=== PATIENT | female | born 1945 | race American Indian/Alaskan Native ===

== ENCOUNTER 2016-04-20 14:20 | Inpatient (IN) | payer MEDICARE ==
--- NOTE | 2016-04-20 14:59 | C.PDOC ---
History Of Present Illness 71-year-old female, PMHx includes Hypertension and CVA, referred by PMD because she failed outpatient treatment for walking pneumonia. As per patient, she has been treated w/ a variety of antibx courses for pneumonia since 01/28. Patient comes in today w/ complaints a non-productive cough, worsening shortness of breath w/ exertion and intermittent swelling in B/L ankles, that is associated w / orthopnea, for the past several weeks. Patient denies nausea/vomiting, diarrhea, fevers, chills, back pain, dizziness, symptoms, change in bowel habits, or any other associated symptoms. No other complaints at this time. DENIES HO SMOKING PMD Dr Monsalve Time Seen by Provider: 04/20/16 14:39 Chief Complaint (Nursing): Cough, Cold, Congestion History Per: Patient History/Exam Limitations: no limitations Past Medical History Reviewed: Historical Data, Nursing Documentation, Vital Signs Vital Signs: Last Vital Signs Temp 99.0 F 04/21/16 23:05 Pulse 65 04/22/16 01:40 Resp 20 04/21/16 23:05 BP 116/77 04/21/16 23:05 Pulse Ox 95 04/21/16 23:05 - Medical History PMH: HTN Family History: States: Unknown Family Hx - Social History Hx Alcohol Use: No Hx Substance Use: No - Immunization History Hx Tetanus Toxoid Vaccination: No Hx Influenza Vaccination: No Hx Pneumococcal Vaccination: No Review Of Systems Except As Marked, All Systems Reviewed And Found Negative. Constitutional: Negative for: Fever, Chills Cardiovascular: Positive for: Orthopnea, Edema. Negative for: Chest Pain, Light Headedness Respiratory: Positive for: Cough, Shortness of Breath. Negative for: Sputum Gastrointestinal: Negative for: Nausea, Vomiting Musculoskeletal: Negative for: Back Pain Skin: Negative for: Rash Physical Exam - Physical Exam Appears: Non-toxic, No Acute Distress Skin: Warm, Dry, No Rash Head: Atraumatic, Normacephalic Eye(s): bilateral: Normal Inspection Nose: Normal Oral Mucosa: Moist Lips: Normal Appearing Neck: Normal ROM, Supple Chest: Symmetrical Cardiovascular: Rhythm Regular Respiratory: Normal Breath Sounds, No Accessory Muscle Use Extremity: Normal ROM, No Pedal Edema Neurological/Psych: Oriented x3, Normal Speech ED Course And Treatment - Laboratory Results Result Diagrams: 04/20/16 15:03 04/21/16 07:08 ECG: Interpreted By Me ECG Rhythm: Sinus Rhythm (TWI III) ECG Interpretation: Abnormal Rate From EC O2 Sat by Pulse Oximetry: 99 Progress - Re-Evaluation Re-evaluation Note: 04/20/16 17:22 CTA NEG CO NEW ONSET L CP X 30 MINUTES. APPEARS COMFORTABLE, NAD VSS. WILL REPEAT EKG. BNP PENDING 04/20/16 17:36 d/w dr munoz c/f pmd AWARE OF ER FINDINGS WILL ADMIT. CONSULT DR CORDOVA - Data Reviewed Data Reviewed: Lab, Diagnostic imaging, EKG, Old records - Continuity of Care Discussed patient case with:: Patient, Covering for PMD Disposition Counseled Patient/Family Regarding: Studies Performed, Diagnosis - Disposition Disposition: HOSPITALIZED Disposition Time: 17:36 Condition: STABLE - POA Present On Arrival: None - Clinical Impression Clinical Impression: Chest pain, Dyspnea on exertion - Scribe Statement The provider has reviewed the documentation as recorded by the Scribe Kady Townsend All medical record entries made by the Scribe were at my direction and personally dictated by me. I have reviewed the chart and agree that the record accurately reflects my personal performance of the history, physical exam, medical decision making, and the department course for this patient. I have also personally directed, reviewed, and agree with the discharge instructions and disposition. Decision To Admit - Pt Status Changed To: Hospital Disposition Of: Inpatient - Admit Certification Admit to Inpatient:: After my assessment, the patient will require hospitalization for at least two midnights. This is because of the severity of symptoms shown, intensity of services needed, and/or the medical risk in this patient being treated as an outpatient. - InPatient: Physician Admission Certification: I certify that this patient requires 2 or more midnights of care for the following reason:: SEE NOTE - . Bed Request Type: Telemetry Admitting Physician: Naun Munoz Patient Diagnosis: Chest pain, Dyspnea on exertion
[2016-04-20 15:14] LABS: BASO % 0.9 % (0.0-2.0); EOS % 0.8 % (0.0-4.0); HEMATOCRIT 31.3 % (34.0-47.0); LYMPH # 1.4 K/uL (1.0-4.3); LYMPH % 35.2 % (20.0-40.0); MEAN CELL VOLUME 82.9 fL (81.0-99.0); MEAN CORPUSCULAR HEMOGLOBIN 27.9 pg (27.0-31.0); MEAN CORPUSCULAR HGB CONC 33.6 g/dL (33.0-37.0); MEAN PLATELET VOLUME 8.1 fL (7.2-11.7); MONO # 0.3 K/uL (0.0-0.8); MONO % 8.8 % (0.0-10.0); NRBC % 0.2 % (0.0-2.0); RED CELL DISTRIBUTION WIDTH 14.8 % (11.5-14.5); WHITE BLOOD COUNT 3.9 K/uL (4.8-10.8)
[2016-04-20 15:22] LABS: CHLORIDE 104 mmol/L (98-107); POTASSIUM 3.9 mmol/L (3.6-5.2); SODIUM 143 mmol/L (132-148)
[2016-04-20 15:24] LABS: BILIRUBIN,TOTAL 0.4 mg/dL (0.2-1.3); CARBON DIOXIDE 22 mmol/L (22-30); GFR AFRICAN-AMERICAN 59
[2016-04-20 15:25] LABS: ALKALINE PHOSPHATASE 127 U/L (38-126); ALT/SGPT 60 U/L (9-52); AST/SGOT 85 U/L (14-36); BLOOD UREA NITROGEN 15 mg/dL (7-17); CALCIUM 8.9 mg/dl (8.6-10.4); GLUCOSE,RANDOM 100 mg/dL (65-105)
--- NOTE | 2016-04-20 15:44 | RAD ---
HISTORY: SOB COMPARISON: None available. TECHNIQUE: Chest PA and lateral FINDINGS: Examination limited by habitus and hypoinflation. LUNGS: Bibasilar atelectasis or infiltrates. Please note that chest x-ray has limited sensitivity for the detection of pulmonary masses. PLEURA: No significant pleural effusion identified. No definite pneumothorax . CARDIOVASCULAR: Enlargement of the cardiomediastinal silhouette. Ectatic aorta. OSSEOUS STRUCTURES: Degenerative changes of the spine and shoulders. VISUALIZED UPPER ABDOMEN: Unremarkable. OTHER FINDINGS: None. IMPRESSION: Enlargement of the cardiomediastinal silhouette. Probable ectatic aorta. CT of the chest with IV contrast may be considered for further evaluation if indicated. Bibasilar atelectasis or infiltrates.
[2016-04-20 15:46] LABS: INR 1.2
[2016-04-20 15:46] LABS: TOTAL PROTEIN 10.9 g/dL (6.3-8.3)
[2016-04-20 15:48] LABS: ALB/GLOB RATIO 0.5 (1.0-2.1)
[2016-04-20] MEDS ORDERED: Iodixanol 320 MG/ML 100 ML BOTTLE IV ONE (16:00)
--- NOTE | 2016-04-20 16:58 | CT ---
CT chest with IV contrast Indication: Coughing, fever, congestion, chest pain Technique: Contiguous axial images were obtained through the chest with intravenous contrast enhancement. Sagittal and coronal reconstructions were generated and reviewed. IV Contrast: 100 cc Visipaque 320 Radiation dose (DLP): 434.56 MGy-cm. Comparison: Chest x-ray performed the same day. Findings: Visualized portions of the inferior thyroid gland appear unremarkable. The mediastinal and hilar vascular structures appear within normal limits. Cardiomegaly. No significant pericardial effusion. Tortuous aorta. No central or segmental pulmonary embolus identified. Bibasilar dependent atelectasis or infiltrates. No pleural effusion. No pneumothorax. No suspicious pulmonary nodules measuring greater than 5 mm. Small hiatal hernia. Limited visualization of the upper abdomen appears grossly unremarkable. Kyphosis. Multilevel degenerative changes. Impression: Cardiomegaly. Tortuous aorta. Bibasilar dependent atelectasis or infiltrates. Small hiatal hernia.
[2016-04-20] MEDS ORDERED: Moxifloxacin IV 400mg/250ml NS 250 ML IV ONE (17:32)
[2016-04-20] MEDS ORDERED: Moxifloxacin IV 400mg/250ml NS 250 ML IVPB ONE (17:59)
[2016-04-20] MEDS: Albuterol-Ipratrop 3 mg / 0.5 (3 ml) UD INH SCH (22:02)
[2016-04-21 03:37] LABS: RBC URINE 1 /hpf (0-3); URINE BACTERIA RARE (<OCC); URINE BILIRUBIN NEGATIVE (NEGATIVE); URINE BLOOD NEGATIVE (NEGATIVE); URINE COLOR Yellow (YELLOW); URINE GLUCOSE (UA) NORMAL (Normal); URINE KETONE NEGATIVE (NEGATIVE); URINE LEUKOCYTE ESTERASE NEG Leu/uL (Negative); URINE PROTEIN NEGATIVE (NEGATIVE); URINE UROBILINOGEN NORMAL mg/dL (0.2-1.0); WBC URINE 1 /hpf (0-5)
[2016-04-21] MEDS: Albuterol-Ipratrop 3 mg / 0.5 (3 ml) UD INH SCH ×4 (07:41→19:25)
--- NOTE | 2016-04-21 08:20 | CP.PCM.HP ---
History of Present Illness - History of Present Illness History of Present Illness: 71 y/o female with HTN. Patient has cough x 3 mths. she was given antibiotic and seen [facility]?. Pt eventually sen in ER c/o chest pain, olaf fatigue (will go to bath room and gets very SOB). Pt eventually admitted. Present on Admission - Present on Admission Any Indicators Present on Admission: Yes History of DVT/PE: No History of Uncontrolled Diabetes: No Urinary Catheter: No Decubitus Ulcer Present: No Review of Systems - Review of Systems Systems not reviewed;Unavailable: Acuity of Condition - Constitutional Constitutional: Fever, Lethargy, Malaise. absent: Anorexia, Headache, Night Sweats - EENT Eyes: absent: Change in Vision, Loss of Peripheral Vision, Spots in Vision, Loss of Vision Ears: Dizziness. absent: Ear Pain, Disequilibrium Nose/Mouth/Throat: absent: Nasal Discharge, Post Nasal Drip, Bleeding Gums, Dry Mouth, Hoarsness, Odynophagia, Sore Throat, Neck Mass - Cardiovascular Cardiovascular: Chest Pain, Dyspnea. absent: Chest Pain at Rest, Diaphoresis, Edema, Irregular Heart Rhythm, Leg Edema - Respiratory Respiratory: Cough, Dyspnea on Exertion. absent: Hemoptysis, Chest Congestion, Excessive Mucous Production - Gastrointestinal Gastrointestinal: Bloating. absent: Diarrhea, Hematochezia, Melena, Nausea, Vomiting - Genitourinary Genitourinary: Urinary Hesitance. absent: Difficulty Urinating, Dysuria, Flank Pain, Hematuria - Musculoskeletal Musculoskeletal: Abnormal Gait. absent: Back Pain, Loss of Height, Neck Pain - Integumentary Integumentary: absent: Rash, Skin Ulcer, Swelling - Neurological Neurological: absent: Abnormal Gait, Abnormal Movements, Dizziness, Numbness, Headaches Past Patient History - Infectious Disease Hx of Infectious Diseases: None - Past Medical History & Family History Past Medical History?: Yes - Past Social History Smoking Status: Never Smoked - CARDIAC Hx Hypertension: Yes - PULMONARY Hx Asthma: Yes - NEUROLOGICAL HX Cerebrovascular Accident: Yes - HEENT Hx HEENT Problems: Yes Hx Cataracts: Yes - RENAL Hx Chronic Kidney Disease: No - ENDOCRINE/METABOLIC Hx Endocrine Disorders: No - HEMATOLOGICAL/ONCOLOGICAL Hx Blood Disorders: No - INTEGUMENTARY Hx Dermatological Problems: No - MUSCULOSKELETAL/RHEUMATOLOGICAL Hx Musculoskeletal Disorders: No Hx Falls: No - GASTROINTESTINAL Hx Gastrointestinal Disorders: No - GENITOURINARY/GYNECOLOGICAL Hx Genitourinary Disorders: No - PSYCHIATRIC Hx Psychophysiologic Disorder: No Hx Substance Use: No - SURGICAL HISTORY Hx Surgeries: Yes Other/Comment: "several" - ANESTHESIA Hx Anesthesia: Yes Hx Anesthesia Reactions: No Hx Malignant Hyperthermia: No Meds Allergies/Adverse Reactions: Allergies Allergy/AdvReac Type Severity Reaction Status Date / Time No Known Allergies Allergy Verified 04/20/16 14:30 Physical Exam - Constitutional Appears: No Acute Distress - Eye Exam Eye Exam: Normal appearance - ENT Exam ENT Exam: Mucous Membranes Moist - Neck Exam Neck exam: Positive for: Lymphadenopathy. Negative for: Full Rom, Tenderness, Thyromegaly - Respiratory Exam Respiratory Exam: Clear to Auscultation Bilateral. absent: Rales, Rhonchi, Wheezes - Cardiovascular Exam Cardiovascular Exam: REGULAR RHYTHM, +S1, +S2. absent: Gallop, JVD, Systolic Murmur - GI/Abdominal Exam GI & Abdominal Exam: Soft. absent: Mass, Tenderness - Extremities Exam Extremities exam: Positive for: full ROM, normal capillary refill. Negative for : calf tenderness, joint swelling, pedal pulses present Results - Vital Signs Recent Vital Signs: Last Vital Signs Temp 98.9 F 04/21/16 07:59 Pulse 61 04/21/16 07:59 Resp 20 04/21/16 07:59 BP 137/80 04/21/16 07:59 Pulse Ox 20 L 04/21/16 07:58 - Labs Result Diagrams: 04/20/16 15:03 04/20/16 15:03 Labs: Laboratory Results - last 24 hr 04/21/16 03:26 Urine Color Yellow Urine Clarity Clear Urine pH 6.0 Ur Specific [place] 1.026 Urine Protein Negative Urine Glucose (UA) Normal Urine Ketones Negative Urine Blood Negative Urine Nitrate Negative Urine Bilirubin Negative Urine Urobilinogen Normal Ur Leukocyte Esterase Neg Urine WBC (Auto) 1 Urine RBC (Auto) 1 Ur Squamous Epith Cells 3 Urine Bacteria Rare - EKG Data EKG Interpreted by: Myself EKG shows normal: Sinus rhythm Rate: Normal (left axis deviation) Assessment & Plan - Assessment and Plan (Free Text) Assessment: Chest pain w/ olaf fatigue HTN; Chr cough w/ bilateral lung Atelectasis Anemia/ Leucopenia & abn LFT Await Cardio eval Seen c/o Dr Evans - heather work up on going B- saroj/ Plavix and Heparin for now Starte on Duaneb & Incentive marina c/o atelectasis
[2016-04-21 08:52] LABS: CHLORIDE 105 mmol/L (98-107); POTASSIUM 3.9 mmol/L (3.6-5.2); SODIUM 143 mmol/L (132-148)
[2016-04-21 08:54] LABS: AST/SGOT 73 U/L (14-36); BILIRUBIN,TOTAL 0.4 mg/dL (0.2-1.3); CARBON DIOXIDE 25 mmol/L (22-30); GFR AFRICAN-AMERICAN 59
[2016-04-21 08:55] LABS: ALB/GLOB RATIO 0.5 (1.0-2.1); ALKALINE PHOSPHATASE 103 U/L (38-126); ALT/SGPT 57 U/L (9-52); BLOOD UREA NITROGEN 17 mg/dL (7-17); CALCIUM 8.5 mg/dl (8.6-10.4); GLUCOSE,RANDOM 82 mg/dL (65-105)
[2016-04-21 09:22] LABS: THYROID STIMULATING HORMONE 1.75 mIU/L (0.46-4.68)
--- NOTE | 2016-04-21 10:16 | US ---
HISTORY: r/o cirrhosis hypersplenism COMPARISON: None available TECHNIQUE: Sonographic evaluation of the abdomen. FINDINGS: LIVER: Measures 16.9 cm in sagittal dimension. Minimal nodular hepatic contour. Echogenic liver may be seen in setting of hepatic parenchymal disease or fatty infiltration. No focal hepatic mass identified. The main portal vein appears patent with normal directional flow. No intrahepatic bile duct dilatation. GALLBLADDER: Gallstones. No gallbladder wall thickening. Negative sonographic Pelletier's sign as assessed by the medical psychotherapist. COMMON BILE DUCT: Measures 4 mm. PANCREAS: Not well visualized. RIGHT KIDNEY: Measures 9.5 x 2.7 x 3.4cm. No obstructing calculus or hydronephrosis identified. LEFT KIDNEY: Measures 9.6 x 4.4 x 4.9cm. No obstructing calculus or hydronephrosis identified. SPLEEN: Measures approximately 10.2 cm. AORTA: Limited views appear unremarkable. IVC: Limited views appear unremarkable. OTHER FINDINGS: None. IMPRESSION: Echogenic liver may be seen in setting of hepatic parenchymal disease or fatty infiltration. Minimal nodularity of the hepatic contour. Cholelithiasis.
--- NOTE | 2016-04-21 12:19 | CP.PCM.CON ---
History of Present Illness - History of Present Illness History of Present Illness: I was sked to see patient by Dr. Ramirez. Patient is a 71 year old female with a history of HTN who presents with dyspnea. Patient was being treated for pneumonia as an outpatient, and developed progressive dyspnea with exertion. He symptoms jayne nto improve with antibiotic therapy. She was admitted for further management. Of note the patient has elevated liver enzymes. Review of Systems - Constitutional Constitutional: absent: As Per HPI, Anorexia, Chills, Daytime Sleepiness, Excessive Sweating, Fatigue, Fever, Frequent Falls, Headache, Increased Appetite , Lethargy, Malaise, Night Sweats, Snoring, Sleep Apnea, Weight Gain, Weight Loss, Weakness, Other - EENT Eyes: absent: As Per HPI, Blind Spots, Blurred Vision, Change in Vision, Decreased Night Vision, Diplopia, Discharge, Dry Eye, Exophthalmos, Floaters, Irritation, Itchy Eyes, Loss of Peripheral Vision, Pain, Photophobia, Requires Corrective Lenses, Sees Flashes, Spots in Vision, Tunnel Vision, Other Visual Disturbances, Loss of Vision, Other Ears: absent: As Per HPI, Decreased Hearing, Ear Discharge, Ear Pain, Tinnitus, Abnormal Hearing, Disequilibrium, Dizziness, Other Nose/Mouth/Throat: absent: As Per HPI, Epistaxis, Nasal Congestion, Nasal Discharge, Nasal Obstruction, Nasal Trauma, Nose Pain, Post Nasal Drip, Sinus Pain, Sinus Pressure, Bleeding Gums, Change in Voice, Dental Pain, Dry Mouth, Dysphagia, Halitosis, Hoarsness, Lip Swelling, Mouth Lesions, Mouth Pain, Odynophagia, Sore Throat, Throat Swelling, Tongue Swelling, Facial Pain, Neck Pain, Neck Mass, Other - Cardiovascular Cardiovascular: absent: As Per HPI, Acrocyanosis, Chest Pain, Chest Pain at Rest , Chest Pain with Activity, Claudication, Diaphoresis, Dyspnea, Dyspnea on Exertion, Edema, Irregular Heart Rhythm, Pain Radiating to Arm/Neck/Jaw, Leg Edema, Leg Ulcers, Lightheadedness, Orthopnea, Palpitations, Paroxysmal Nocturnal Dyspnea, Pedal Edema, Radiating Pain, Rapid Heart Rate, Slow Heart Rate, Syncope, Other - Respiratory Respiratory: Dyspnea - Gastrointestinal Gastrointestinal: absent: As Per HPI, Abdominal Pain, Belching, Bloating, Change in Bowel Habits, Change in Stool Character, Coffee Ground Emesis, Constipation, Cramping, Diarrhea, Dyspepsia, Dysphagia, Early Satiety, Excessive Flatus, Fecal Incontinence, Heartburn, Hematemesis, Hematochezia, Loose Stools, Melena, Nausea, Odynophagia, Temesmus, Vomiting, Other - Genitourinary Genitourinary: absent: As Per HPI, Change in Urinary Stream, Difficulty Urinating, Dysuria, Flank Pain, Hematuria, Pyuria, Nocturia, Urinary Incontinence, Urinary Frequency, Urinary Hesitance, Urinary Urgency, Voiding Freq/Small Amts, Freq UTI, Hx Renal/Bladder Calculi, Hx /Renal Surgery, Bladder Distension, Other - Musculoskeletal Musculoskeletal: absent: As Per HPI, Abnormal Gait, Arthralgias, Atrophy, Back Pain, Deformity, Joint Swelling, Limited Range of Motion, Loss of Height, Muscle Cramps, Muscle Weakness, Myalgias, Neck Pain, Numbness, Radiating Pain into Limb, Stiffness, Tingling, Other - Integumentary Integumentary: absent: As Per HPI, Acne, Alopecia, Bleeding Lesions, Change in Hair, Change in Nails, Change in Pigmentation, Changing Lesions, Dry Skin, Erythema, Furuncle, Hirsutism, Lesions, New Lesions, Non-Healing Lesions, Photosensitivity, Pruritus, Rash, Skin Pain, Skin Ulcer, Sores, Striae, Swelling , Unusual Bruising, Wounds, Jaundice, Other - Neurological Neurological: absent: As Per HPI, Abnormal Gait, Abnormal Hearing, Abnormal Movements, Abnormal Speech, Behavioral Changes, Burning Sensations, Confusion, Convulsions, Disequilibrium, Dizziness, Numbness, Focal Weakness, Frequent Falls , Headaches, Lack of Coordination, Loss of Vision, Memory Loss, Paresthesias, Radicular Pain, Restless Legs, Sensory Deficit, Syncope, Tingling, Tremor, Vertigo, Weakness, Other Visual Disturbances, Other - Psychiatric Psychiatric: absent: As Per HPI, Abnormal Sleep Pattern, Anhedonia, Anxiety, Auditory Hallucinations, Behavioral Changes, Change in Appetite, Change in Libido, Confusion, Depression, Difficulty Concentrating, Hallucinations, Homicidal Ideation, Hopelessness, Irritability, Memory Loss, Mood Swings, Panic Attacks, Paranoia, Suicidal Ideation, Visual Hallucinations, Tactile Hallucinations, Other - Endocrine Endocrine: absent: As Per HPI, Change in Body Appearance, Change in Libido, Cold Intolorance, Deepening of Voice, Excessive Sweating, Fatigue, Flushing, Heat Intolorance, Increase in Ring/Shoe/Hat Size, Palpitations, Polydipsia, Polyphagia, Polyuria, Other - Hematologic/Lymphatic Hematologic: absent: As Per HPI, Easy Bleeding, Easy Bruising, Lymphadenopathy, Other Past Patient History - Infectious Disease Hx of Infectious Diseases: None - Past Medical History & Family History Past Medical History?: Yes - Past Social History Smoking Status: Never Smoked - CARDIAC Hx Hypertension: Yes - PULMONARY Hx Asthma: Yes - NEUROLOGICAL HX Cerebrovascular Accident: Yes - HEENT Hx HEENT Problems: Yes Hx Cataracts: Yes - RENAL Hx Chronic Kidney Disease: No - ENDOCRINE/METABOLIC Hx Endocrine Disorders: No - HEMATOLOGICAL/ONCOLOGICAL Hx Blood Disorders: No - INTEGUMENTARY Hx Dermatological Problems: No - MUSCULOSKELETAL/RHEUMATOLOGICAL Hx Musculoskeletal Disorders: No Hx Falls: No - GASTROINTESTINAL Hx Gastrointestinal Disorders: No - GENITOURINARY/GYNECOLOGICAL Hx Genitourinary Disorders: No - PSYCHIATRIC Hx Psychophysiologic Disorder: No Hx Substance Use: No - SURGICAL HISTORY Hx Surgeries: Yes Other/Comment: "several" - ANESTHESIA Hx Anesthesia: Yes Hx Anesthesia Reactions: No Hx Malignant Hyperthermia: No Meds Allergies/Adverse Reactions: Allergies Allergy/AdvReac Type Severity Reaction Status Date / Time No Known Allergies Allergy Verified 04/20/16 14:30 - Medications Medications: Current Medications Albuterol/Ipratropium (Duoneb 3 Mg/0.5 Mg (3 Ml) Ud) 3 ml INH RQID [facility] Last Admin: 04/21/16 11:22 Dose: 3 ml Clopidogrel Bisulfate (Plavix) 75 mg PO DAILY [facility] Last Admin: 04/21/16 10:10 Dose: 75 mg Heparin Sodium (Porcine) (Heparin) 5,000 units SC Q12 [facility] Last Admin: 04/21/16 10:10 Dose: 5,000 units Influenza Virus Vaccine (Afluria) 45 mcg IM .ONCE ONE Stop: 04/23/16 10:01 Metoprolol Tartrate (Lopressor) 50 mg PO BID [facility] Last Admin: 04/21/16 10:10 Dose: 50 mg Pneumococcal Polyvalent Vaccine (Pneumovax 23 Vaccine) 0.5 ml IM .ONCE ONE Stop: 04/23/16 10:01 Physical Exam - Constitutional Appears: Non-toxic - Head Exam Head Exam: NORMAL INSPECTION - Eye Exam Eye Exam: Normal appearance - ENT Exam ENT Exam: Mucous Membranes Moist - Neck Exam Neck exam: Positive for: Full Rom - Respiratory Exam Respiratory Exam: NORMAL BREATHING PATTERN - Cardiovascular Exam Cardiovascular Exam: REGULAR RHYTHM - GI/Abdominal Exam GI & Abdominal Exam: Normal Bowel Sounds - Rectal Exam Rectal Exam: Deferred - Extremities Exam Extremities exam: Negative for: pedal edema - Back Exam Back exam: NORMAL INSPECTION - Neurological Exam Neurological exam: Alert, Oriented x3 - Psychiatric Exam Psychiatric exam: Normal Affect - Skin Skin Exam: Normal Color Results - Vital Signs Recent Vital Signs: Last Vital Signs Temp 98.9 F 04/21/16 07:59 Pulse 61 04/21/16 07:59 Resp 20 04/21/16 07:59 BP 137/80 04/21/16 07:59 Pulse Ox 20 L 04/21/16 07:58 - Labs Result Diagrams: 04/20/16 15:03 04/21/16 07:08 Labs: Laboratory Results - last 24 hr 04/21/16 04/21/16 04/21/16 03:26 07:08 11:11 Sodium 143 Potassium 3.9 Chloride 105 Carbon Dioxide 25 Anion Gap 17 BUN 17 Creatinine 1.1 Est GFR ( Amer) 59 Est GFR (Non-Af Amer) 49 Random Glucose 82 Calcium 8.5 L Total Bilirubin 0.4 AST 73 H ALT 57 H Alkaline Phosphatase 103 Lactate Dehydrogenase 418 Troponin I < 0.0120 Total Protein 10.0 H Albumin 3.4 L Globulin 6.6 H Albumin/Globulin Ratio 0.5 L TSH 3rd Generation 1.75 Urine Color Yellow Urine Clarity Clear Urine pH 6.0 Ur Specific [place] 1.026 Urine Protein Negative Urine Glucose (UA) Normal Urine Ketones Negative Urine Blood Negative Urine Nitrate Negative Urine Bilirubin Negative Urine Urobilinogen Normal Ur Leukocyte Esterase Neg Urine WBC (Auto) 1 Urine RBC (Auto) 1 Ur Squamous Epith Cells 3 Urine Bacteria Rare - EKG Data EKG Interpreted by: Myself EKG shows normal: Sinus rhythm Assessment & Plan (1) Chest pain Assessment and Plan: appears non cardiac in origin. recommend serial cardiac troponin.. check echocardiogram to eval for regional wall motion abnormalities. Status: Acute (2) Dyspnea on exertion Assessment and Plan: will check echocardiogram Status: Acute
[2016-04-21 12:27] LABS: IMMUNOGLOBULIN M 36.5 mg/dL (40.0-230.0)
[2016-04-21 12:28] LABS: IMMUNOGLOBULIN A 207.6 mg/dL (70.0-400.0)
[2016-04-21 13:31] LABS: IMMUNOGLOBULIN G > 2700.0 mg/dL (700.0-1600.0)
--- NOTE | 2016-04-21 14:15 | CARD ---
APPROVED REPORT EXAM: Two-dimensional and M-mode echocardiogram with Doppler and color Doppler. Other Information Quality : GoodRhythm : NSR INDICATION CVA/TIA Dyspnea Chest Pain RISK FACTORS Hypertension M-Mode DIMENSIONS RVDd1.53 (2.1-3.2cm)Left Atrium (MM)3.85 (2.5-4.0cm) IVSd0.90 (0.7-1.1cm)Aortic Root3.02 (2.2-3.7cm) LVDd4.55 (4.0-5.6cm)Aortic Cusp Exc.2.01 (1.5-2.0cm) PWd0.94 (0.7-1.1cm)FS (%) 39 % LVDs2.78 (2.0-3.8cm)LVEF (%)69 (>50%) Aortic Valve AoV Peak Txyuylkn533.5cm/Jaswant Peak GR.8mmHgAI P 1/2 [id number] Mitral Valve MV E Keamhtst53.4cm/sMV A Hogrxsuo89.6cm/sE/A ratio1.1 TDI E/Lateral E'0.0E/Medial E'0.0 Tricuspid Valve TR Peak [id number]/sTR Peak Gr.[id number] LEFT VENTRICLE The left ventricle is normal size. There is normal left ventricular wall thickness. The left ventricular function is normal. The left ventricular ejection fraction is within the normal range. There is normal LV segmental wall motion. The left ventricular diastolic function is normal. RIGHT VENTRICLE The right ventricle is normal size. There is normal right ventricular wall thickness. ATRIA The left atrium size is normal. The right atrium size is normal. AORTIC VALVE There is trace to mild aortic regurgitation. MITRAL VALVE Mitral regurgitation is trace. TRICUSPID VALVE There is mild tricuspid regurgitation. <Conclusion> Normal LV systoli cfunction. Normal chamber size. Trace MR. Trace to mild AR. Mild TR.
--- NOTE | 2016-04-21 14:40 | CON ---
DATE: 04/21/2016 This is a 71-year-old woman who gives a relatively poor history. She lives alone in a senior citizen s. Cigarettes negative, alcohol negative. She does not know what medicines she takes but she says she has been on antibiotics several times in the last few months. She says she has not been in the h ospital in several years; however, she says that she was supposed to go for right knee operation at [facility] a year ago and this was canceled because she was having left-sided chest pains and ab normal liver tests. She was told that her heart was causing the liver problem. She does not know an ything more about that. 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 In any event, she is now co samm in for increasing shortness of breath and aches in her left shoulder and left chest wall area. She denies any change in her diet. Has no abdominal pains and no fever. PHYSICAL EXAMINATION: SKIN: No petechiae, no bruises. HEENT: Anicteric. NODES: None palpable in the axillary, cervical, supraclavicular or inguinal regions. BREAST: No mass, discharge, dimpling. HEART: S1, S2, no gallops, rubs, or murmur. LUNGS: Clear at present. No rales, no rhonchi, no rubs, no wheezing. She is able to lie flat in be d. No vertebral tenderness noted. ABDOMEN: Shows no liver, no spleen, no tenderness, no ascites, no rebound. EXTREMITIES: No edema. Homans' negative. CENTRAL NERVOUS SYSTEM: No focal finding. The liver blood tests are significant for pancytopenia. White count 3.9, hemoglobin 10.5, MCV 83, an d platelet count of 132. Her liver function tests are also elevated and she has a total protein of 1 0 with a globulin of 7. At this point, I am ordering tests to see if this is a polyclonal versus monoclonal gammopathy. I am ordering an abdominal ultrasound to evaluate the liver and spleen to see if this is not cirrhosis wi th hypersplenism and then we will take it from there. Tommie Evans MD cc: [phone] TT: 04/21/2016 09:33:24 Confirmation # [id number] Dictation # [id number]
--- NOTE | 2016-04-21 14:46 | CARD ---
APPROVED REPORT EKG Measurement Heart [id number] <Conclusion> Normal sinus rhythm Minimal voltage criteria for LVH, may be normal variant Abnormal ECG
[2016-04-21] MEDS: Moxifloxacin IV 400mg/250ml NS 250 ML IVPB SCH (21:35)
[2016-04-21] MEDS: Latanoprost 2.5 ml Opht Soln OU SCH (23:40)
--- NOTE | 2016-04-22 02:21 | CP.PCM.PN ---
Subjective - Date & Time of Evaluation Date of Evaluation: 04/22/16 Time of Evaluation: 02:18 - Subjective Subjective: House Doctor Note Patient was seen at bedside complaining of BL LE pain. Pain was elicited on palpation behind both knees and bilateral calf tenderness. BL venous dopplers ordered. Patient asked for tylenol for pain. Due to her elevated LFTs, she was given toradol instead. Mariela NERI, PGY-1 Objective - Vital Signs/Intake and Output Vital Signs (last 24 hours): Temp Pulse Resp BP Pulse Ox 99.0 F 65 20 116/77 95 04/21/16 23:05 04/22/16 01:40 04/21/16 23:05 04/21/16 23:05 04/21/16 23:05 Intake and Output: 04/21/16 04/22/16 18:59 06:59 Intake Total 270 570 Balance 270 570 - Medications Medications: Current Medications Albuterol/Ipratropium (Duoneb 3 Mg/0.5 Mg (3 Ml) Ud) 3 ml INH RQID [facility] Last Admin: 04/21/16 19:25 Dose: 3 ml Clopidogrel Bisulfate (Plavix) 75 mg PO DAILY [facility] Last Admin: 04/21/16 10:10 Dose: 75 mg Docusate Sodium (Colace) 100 mg PO BID [facility] Last Admin: 04/21/16 18:34 Dose: 100 mg Heparin Sodium (Porcine) (Heparin) 5,000 units SC Q12 [facility] Last Admin: 04/21/16 21:34 Dose: 5,000 units Moxifloxacin HCl (Avelox Iv 400mg/250ml Ns) 250 mls @ 167 mls/hr IVPB Q24H [facility] Last Admin: 04/21/16 21:35 Dose: 167 mls/hr Influenza Virus Vaccine (Afluria) 45 mcg IM .ONCE ONE Stop: 04/23/16 10:01 Ketorolac Tromethamine (Toradol) 30 mg IVP STAT STA Stop: 04/22/16 02:18 Latanoprost (Xalatan Opht) 0 ml OU HS [facility] Metoprolol Tartrate (Lopressor) 50 mg PO BID [facility] Last Admin: 04/21/16 17:49 Dose: 50 mg Pneumococcal Polyvalent Vaccine (Pneumovax 23 Vaccine) 0.5 ml IM .ONCE ONE Stop: 03/11/17 10:01 - Labs Labs: 04/21/16 07:08 PT 13.6 SECONDS (9.7-12.2) H 04/20/16 15:35 INR 1.2 04/20/16 15:35 APTT 30 SECONDS (21-34) 04/20/16 15:35
[2016-04-22 07:34] LABS: IGG,SERUM 7014 mg/dL (694-1618); IGM,SERUM 34 mg/dL (48-271)
--- NOTE | 2016-04-22 08:18 | CP.PCM.PN ---
Subjective - Date & Time of Evaluation Date of Evaluation: 04/22/16 Time of Evaluation: 08:00 - Subjective Subjective: Pt still cough; Admits had asthma as a child No CP, * (+) still cough and SOB w/ effort No palpitation, no n/v, no diarrhea, no dysuria Objective - Vital Signs/Intake and Output Vital Signs (last 24 hours): Temp Pulse Resp BP Pulse Ox 98.2 F 61 20 112/77 99 04/22/16 07:07 04/22/16 07:07 04/22/16 07:07 04/22/16 07:07 04/22/16 07:31 Intake and Output: 04/22/16 04/22/16 06:59 18:59 Intake Total 810 Balance 810 - Medications Medications: Current Medications Albuterol/Ipratropium (Duoneb 3 Mg/0.5 Mg (3 Ml) Ud) 3 ml INH RQID [facility] Last Admin: 04/21/16 19:25 Dose: 3 ml Clopidogrel Bisulfate (Plavix) 75 mg PO DAILY [facility] Last Admin: 04/21/16 10:10 Dose: 75 mg Docusate Sodium (Colace) 100 mg PO BID [facility] Last Admin: 04/21/16 18:34 Dose: 100 mg Heparin Sodium (Porcine) (Heparin) 5,000 units SC Q12 [facility] Last Admin: 04/21/16 21:34 Dose: 5,000 units Moxifloxacin HCl (Avelox Iv 400mg/250ml Ns) 250 mls @ 167 mls/hr IVPB Q24H [facility] Last Admin: 04/21/16 21:35 Dose: 167 mls/hr Influenza Virus Vaccine (Afluria) 45 mcg IM .ONCE ONE Stop: 04/23/16 10:01 Latanoprost (Xalatan Opht) 0 ml OU HS [facility] Last Admin: 04/21/16 23:40 Dose: 1 ml Metoprolol Tartrate (Lopressor) 50 mg PO BID [facility] Last Admin: 04/21/16 17:49 Dose: 50 mg Pneumococcal Polyvalent Vaccine (Pneumovax 23 Vaccine) 0.5 ml IM .ONCE ONE Stop: 04/23/16 10:01 - Labs Labs: 04/21/16 07:08 PT 13.6 SECONDS (9.7-12.2) H 03/08/17 15:35 INR 1.2 04/20/16 15:35 APTT 30 SECONDS (21-34) 04/20/16 15:35 - Constitutional Appears: No Acute Distress - Eye Exam Eye Exam: Normal appearance - ENT Exam ENT Exam: Mucous Membranes Moist - Neck Exam Neck Exam: Full ROM. absent: Lymphadenopathy, Tenderness - Respiratory Exam Respiratory Exam: Clear to Ausculation Bilateral, Wheezes. absent: Rales, Rhonchi - GI/Abdominal Exam GI & Abdominal Exam: Soft. absent: Tenderness, Mass - Extremities Exam Extremities Exam: Full ROM, Normal Capillary Refill. absent: Calf Tenderness, Joint Swelling, Pedal Edema Assessment and Plan - Assessment and Plan (Free Text) Assessment: Atyp chest pain w/ SOB w/ effort - likely Asthma HTN Anemia; leucopenia w/ abn LFT Cardio note reviewed - appreciated Will add Adviar; cont meds Physical therapy
[2016-04-22] MEDS: Albuterol-Ipratrop 3 mg / 0.5 (3 ml) UD INH SCH ×3 (09:15→19:12)
--- NOTE | 2016-04-22 11:55 | CON ---
DATE: 04/22/2016 The ultrasound done yesterday shows nodularity of the liver which is consistent with cirrhosis, altho ugh the spleen is only about 10-11 cm. This could contribute to the pancytopenia. Furthermore, her B12 level came back as well at 200. I am going to repeat that and do a homocysteine level to see if I can corroborate that before we start her on B12. But if that is true, that also can contribute to the pancytopenia. As far as the total protein is concerned at 7000 IgG, we are awaiting the immunoel ectrophoresis on this. So, so far we are just repeating these labs with no treatment until we can ev aluate them further. Tommie Evans MD cc: [phone] TT: 04/22/2016 11:54:41 Confirmation # [id number] Dictation # [id number]
--- NOTE | 2016-04-22 15:18 | VASCLAB ---
PROCEDURE: Lower Extremity Venous Duplex Exam. HISTORY: Leg pain PRIORS: None. TECHNIQUE: Bilateral common femoral, femoral, popliteal and posterior tibial, peroneal and great saphenous veins were evaluated. Flow was assessed with color Doppler, compressibility, assessment of phasic flow and augmentation response. Report prepared by RUTH Appiah FINDINGS: RIGHT: 1. Common Femoral Vein: 1.1. Compressibility - Fully compressible: Thrombus - None : Flow - Phasic: Augmentation -Normal: Reflux - None. 2. Femoral Vein: 2.1. Compressibility - Fully compressible: Thrombus - None : Flow - Phasic: Augmentation -Normal: Reflux - None. 3. Popliteal Vein: 3.1. Compressibility - Fully compressible: Thrombus - None : Flow - Phasic: Augmentation -Normal: Reflux - None. 4. Posterior Tibial Vein: 4.1. Compressibility - Fully compressible: Thrombus - None: Flow - Phasic: Augmentation -Normal: Reflux - None. 5. Peroneal Vein: 5.1. Compressibility - Fully compressible: Thrombus - None: Flow - Phasic: Augmentation -Normal: Reflux - None. 6. Great Saphenous Vein: 6.1. Compressibility - Fully compressible: Thrombus - None: Flow - Phasic: Augmentation - Normal: Reflux - None. LEFT: 1. Common Femoral Vein: 1.1. Compressibility - Fully compressible: Thrombus - None: Flow - Phasic: Augmentation -Normal: Reflux - None. 2. Femoral Vein: 2.1. Compressibility - Fully compressible: Thrombus - None: Flow - Phasic: Augmentation -Normal: Reflux - None. 3. Popliteal Vein: 3.1. Compressibility - Fully compressible: Thrombus - None : Flow - Phasic: Augmentation -Normal: Reflux - None. 4. Posterior Tibial Vein: 4.1. Compressibility - Fully compressible: Thrombus - None: Flow - Phasic: Augmentation -Normal: Reflux - None. 5. Peroneal Vein: 5.1. Compressibility - Fully compressible: Thrombus - None: Flow - Phasic: Augmentation -Normal: Reflux - None. 6. Great Saphenous Vein: 6.1. Compressibility - Fully compressible: Thrombus - None: Flow - Phasic: Augmentation - Normal: Reflux - None. OTHER FINDINGS: Right: None significant. Left: None significant. IMPRESSION: Right: No evidence of deep or superficial vein thrombosis of the right lower extremity. Normal valve function noted of the right side. Left: No evidence of deep or superficial vein thrombosis of the left lower extremity. Normal valve function noted of the left side.
[2016-04-22] MEDS: Fluticasone-Salmeterol 500-50mcg Diskus INH SCH (19:13)
[2016-04-22] MEDS: Moxifloxacin IV 400mg/250ml NS 250 ML IVPB SCH (19:25)
--- NOTE | 2016-04-22 20:25 | CP.PCM.PN ---
Subjective - Date & Time of Evaluation Date of Evaluation: 04/22/16 Time of Evaluation: 12:00 - Subjective Subjective: SOB AND WHEEZING NO ORTHOPNEA MULTIPLE MSK COMPLAINTS Objective - Vital Signs/Intake and Output Vital Signs (last 24 hours): Temp Pulse Resp BP Pulse Ox 98.3 F 65 20 108/72 97 04/22/16 15:00 04/22/16 16:00 04/22/16 15:00 04/22/16 15:00 04/22/16 15:00 - Medications Medications: Current Medications Albuterol/Ipratropium (Duoneb 3 Mg/0.5 Mg (3 Ml) Ud) 3 ml INH RQID [facility] Last Admin: 04/22/16 19:12 Dose: 3 ml Clopidogrel Bisulfate (Plavix) 75 mg PO DAILY [facility] Last Admin: 04/22/16 10:04 Dose: 75 mg Docusate Sodium (Colace) 100 mg PO BID [facility] Last Admin: 04/22/16 17:53 Dose: 100 mg Famotidine (Pepcid) 20 mg PO BID [facility] Last Admin: 04/22/16 17:53 Dose: 20 mg Heparin Sodium (Porcine) (Heparin) 5,000 units SC Q12 [facility] Last Admin: 04/22/16 10:04 Dose: 5,000 units Moxifloxacin HCl (Avelox Iv 400mg/250ml Ns) 250 mls @ 167 mls/hr IVPB Q24H [facility] Last Admin: 04/22/16 19:25 Dose: 167 mls/hr Ibuprofen (Motrin Tab) 600 mg PO BID [facility] Last Admin: 04/22/16 10:05 Dose: 600 mg Influenza Virus Vaccine (Afluria) 45 mcg IM .ONCE ONE Stop: 04/23/16 10:01 Latanoprost (Xalatan Opht) 0 ml OU HS [facility] Last Admin: 04/21/16 23:40 Dose: 1 ml Metoprolol Tartrate (Lopressor) 50 mg PO BID [facility] Last Admin: 04/22/16 17:53 Dose: 50 mg Montelukast Sodium (Singulair) 10 mg PO HS [facility] Pneumococcal Polyvalent Vaccine (Pneumovax 23 Vaccine) 0.5 ml IM .ONCE ONE Stop: 04/23/16 10:01 Fluticasone/Salmeterol (Advair Diskus 500/50) 1 puff INH RQ12 [facility] Last Admin: 04/22/16 19:13 Dose: 1 puff - Labs Labs: 04/21/16 07:08 PT 13.6 SECONDS (9.7-12.2) H 04/20/16 15:35 INR 1.2 04/20/16 15:35 APTT 30 SECONDS (21-34) 04/20/16 15:35 - Constitutional Appears: Well - Head Exam Head Exam: ATRAUMATIC, NORMAL INSPECTION, NORMOCEPHALIC - Eye Exam Eye Exam: EOMI, Normal appearance, PERRL Pupil Exam: NORMAL ACCOMODATION, PERRL - ENT Exam ENT Exam: Mucous Membranes Moist, Normal Exam - Neck Exam Neck Exam: Full ROM, Normal Inspection. absent: Lymphadenopathy - Respiratory Exam Respiratory Exam: Wheezes, NORMAL BREATHING PATTERN - Cardiovascular Exam Cardiovascular Exam: REGULAR RHYTHM, +S1, +S2, Murmur - GI/Abdominal Exam GI & Abdominal Exam: Soft, Normal Bowel Sounds. absent: Tenderness - Rectal Exam Rectal Exam: Deferred - Extremities Exam Extremities Exam: Full ROM, Normal Capillary Refill, Normal Inspection. absent : Joint Swelling, Pedal Edema - Back Exam Back Exam: NORMAL INSPECTION - Neurological Exam Neurological Exam: Alert, Awake, CN II-XII Intact, Normal Gait, Oriented x3 - Psychiatric Exam Psychiatric exam: Normal Affect, Normal Mood - Skin Skin Exam: Dry, Intact, Normal Color, Warm Assessment and Plan (1) Chest pain Status: Acute (2) Dyspnea on exertion Status: Acute (3) COPD (chronic obstructive pulmonary disease) Status: Acute (4) Respiratory infection Status: Acute - Assessment and Plan (Free Text) Plan: CONTINUE NEBS AND ABX SOB NOT CARDIAC IN ORIGIN MONITOR ON TELE MONITOR LYTES CONT MEDS WILL FOLLOW 40 MIN TOTAL CARE TIME
[2016-04-22] MEDS: Latanoprost 2.5 ml Opht Soln OU SCH (21:41)
[2016-04-23] MEDS: Albuterol-Ipratrop 3 mg / 0.5 (3 ml) UD INH SCH ×4 (07:41→19:53)
[2016-04-23] MEDS: Fluticasone-Salmeterol 500-50mcg Diskus INH SCH ×2 (07:41→19:55)
--- NOTE | 2016-04-23 08:10 | CP.PCM.PN ---
Subjective - Date & Time of Evaluation Date of Evaluation: 04/23/16 Time of Evaluation: 07:50 - Subjective Subjective: Pt no complain exc cough but getting better No more CP, less SOB & fatigue; no diarrhea, no n/v, no diaphoresis Objective - Vital Signs/Intake and Output Vital Signs (last 24 hours): Temp Pulse Resp BP Pulse Ox 98.7 F 78 18 123/79 97 04/22/16 23:10 04/23/16 02:30 04/23/16 02:30 04/23/16 02:30 04/23/16 02:30 Intake and Output: 04/23/16 04/23/16 06:59 18:59 Intake Total 570 Balance 570 - Medications Medications: Current Medications Acetaminophen (Tylenol 325mg Tab) 325 mg PO TID [facility] Albuterol/Ipratropium (Duoneb 3 Mg/0.5 Mg (3 Ml) Ud) 3 ml INH RQID [facility] Last Admin: 04/23/16 07:41 Dose: 3 ml Docusate Sodium (Colace) 100 mg PO BID [facility] Last Admin: 04/22/16 17:53 Dose: 100 mg Famotidine (Pepcid) 20 mg PO BID [facility] Last Admin: 04/22/16 17:53 Dose: 20 mg Moxifloxacin HCl (Avelox Iv 400mg/250ml Ns) 250 mls @ 167 mls/hr IVPB Q24H [facility] Last Admin: 04/22/16 19:25 Dose: 167 mls/hr Influenza Virus Vaccine (Afluria) 45 mcg IM .ONCE ONE Stop: 04/23/16 10:01 Latanoprost (Xalatan Opht) 0 ml OU [facility] Last Admin: 04/22/16 21:41 Dose: 1 ml Metoprolol Tartrate (Lopressor) 50 mg PO BID [facility] Last Admin: 04/22/16 17:53 Dose: 50 mg Montelukast Sodium (Singulair) 10 mg PO HS [facility] Last Admin: 04/22/16 21:42 Dose: 10 mg Pneumococcal Polyvalent Vaccine (Pneumovax 23 Vaccine) 0.5 ml IM .ONCE ONE Stop: 04/23/16 10:01 Fluticasone/Salmeterol (Advair Diskus 500/50) 1 puff INH RQ12 [facility] Last Admin: 03/11/17 07:41 Dose: 1 puff - Labs Labs: 04/21/16 07:08 PT 13.6 SECONDS (9.7-12.2) H 04/20/16 15:35 INR 1.2 04/20/16 15:35 APTT 30 SECONDS (21-34) 04/20/16 15:35 - Constitutional Appears: No Acute Distress - Eye Exam Eye Exam: Normal appearance - ENT Exam ENT Exam: Mucous Membranes Moist - Neck Exam Neck Exam: Full ROM. absent: Lymphadenopathy, Meningismus, Normal Inspection - Respiratory Exam Respiratory Exam: Clear to Ausculation Bilateral. absent: Chest Wall Tenderness , Rales, Rhonchi, Wheezes - Cardiovascular Exam Cardiovascular Exam: REGULAR RHYTHM, +S1, +S2. absent: Gallop, JVD, Murmur - GI/Abdominal Exam GI & Abdominal Exam: Soft. absent: Tenderness, Mass - Extremities Exam Extremities Exam: Full ROM, Normal Capillary Refill. absent: Joint Swelling, Pedal Edema
--- NOTE | 2016-04-23 08:19 | CP.PCM.PN ---
Subjective - Date & Time of Evaluation Date of Evaluation: 04/23/16 Time of Evaluation: 03:50 - Subjective Subjective: Pt no complain exc cough; less SOB and fatigue No diarrhea, no n/v, no urinary complain Objective - Vital Signs/Intake and Output Vital Signs (last 24 hours): Temp Pulse Resp BP Pulse Ox 99.2 F 84 18 120/79 100 04/23/16 07:10 04/23/16 07:10 04/23/16 07:10 04/23/16 07:10 04/23/16 07:10 Intake and Output: 04/23/16 04/23/16 06:59 18:59 Intake Total 570 Balance 570 - Medications Medications: Current Medications Acetaminophen (Tylenol 325mg Tab) 325 mg PO TID [facility] Albuterol/Ipratropium (Duoneb 3 Mg/0.5 Mg (3 Ml) Ud) 3 ml INH RQID [facility] Last Admin: 04/23/16 07:41 Dose: 3 ml Docusate Sodium (Colace) 100 mg PO BID [facility] Last Admin: 04/22/16 17:53 Dose: 100 mg Famotidine (Pepcid) 20 mg PO BID [facility] Last Admin: 04/22/16 17:53 Dose: 20 mg Moxifloxacin HCl (Avelox Iv 400mg/250ml Ns) 250 mls @ 167 mls/hr IVPB Q24H [facility] Last Admin: 04/22/16 19:25 Dose: 167 mls/hr Influenza Virus Vaccine (Afluria) 45 mcg IM .ONCE ONE Stop: 04/23/16 10:01 Latanoprost (Xalatan Opht) 0 ml OU [facility] Last Admin: 04/22/16 21:41 Dose: 1 ml Metoprolol Tartrate (Lopressor) 50 mg PO BID [facility] Last Admin: 04/22/16 17:53 Dose: 50 mg Montelukast Sodium (Singulair) 10 mg PO HS [facility] Last Admin: 04/22/16 21:42 Dose: 10 mg Pneumococcal Polyvalent Vaccine (Pneumovax 23 Vaccine) 0.5 ml IM .ONCE ONE Stop: 04/23/16 10:01 Fluticasone/Salmeterol (Advair Diskus 500/50) 1 puff INH RQ12 [facility] Last Admin: 04/23/16 07:41 Dose: 1 puff - Labs Labs: 04/21/16 07:08 PT 13.6 SECONDS (9.7-12.2) H 04/20/16 15:35 INR 1.2 04/20/16 15:35 APTT 30 SECONDS (21-34) 04/20/16 15:35 - Constitutional Appears: No Acute Distress - Eye Exam Eye Exam: Normal appearance - ENT Exam ENT Exam: Mucous Membranes Moist - Neck Exam Neck Exam: Full ROM. absent: Lymphadenopathy, Normal Inspection, Thyromegaly - Respiratory Exam Respiratory Exam: Clear to Ausculation Bilateral. absent: Rales, Rhonchi, Wheezes - Cardiovascular Exam Cardiovascular Exam: REGULAR RHYTHM, +S1, +S2. absent: Gallop, JVD, Murmur - GI/Abdominal Exam GI & Abdominal Exam: Soft. absent: Tenderness, Mass - Extremities Exam Extremities Exam: Full ROM, Normal Capillary Refill. absent: Calf Tenderness, Joint Swelling, Pedal Edema Assessment and Plan - Assessment and Plan (Free Text) Assessment: Chest pain - resolve HTN, Gait Disorder; Nose bleed Asthma ? Pneumonia Stop Plavix, Heparin and Motrin Cont meds
[2016-04-23] MEDS ORDERED: Pneumococcal 23-Valent Vaccine IM ONE (10:00)
[2016-04-23] MEDS ORDERED: Influenza Virus Vaccine 45 mcg/0.5 ml Syr IM ONE (10:00)
--- NOTE | 2016-04-23 17:48 | CP.PCM.PN ---
Subjective - Date & Time of Evaluation Date of Evaluation: 04/23/16 Time of Evaluation: 12:30 - Subjective Subjective: CONTINUED [place]AND. NO CP Objective - Vital Signs/Intake and Output Vital Signs (last 24 hours): Temp Pulse Resp BP Pulse Ox 98 F 73 20 114/75 100 04/23/16 15:47 04/23/16 15:47 04/23/16 15:47 04/23/16 15:47 04/23/16 15:47 Intake and Output: 04/23/16 04/23/16 06:59 18:59 Intake Total 570 Balance 570 - Medications Medications: Current Medications Acetaminophen (Tylenol 325mg Tab) 325 mg PO TID [facility] Last Admin: 04/23/16 14:50 Dose: 325 mg Albuterol/Ipratropium (Duoneb 3 Mg/0.5 Mg (3 Ml) Ud) 3 ml INH RQID [facility] Last Admin: 04/23/16 16:08 Dose: 3 ml Docusate Sodium (Colace) 100 mg PO BID [facility] Last Admin: 04/23/16 10:13 Dose: 100 mg Famotidine (Pepcid) 20 mg PO BID [facility] Last Admin: 04/23/16 10:13 Dose: 20 mg Moxifloxacin HCl (Avelox Iv 400mg/250ml Ns) 250 mls @ 167 mls/hr IVPB Q24H [facility] Last Admin: 04/22/16 19:25 Dose: 167 mls/hr Latanoprost (Xalatan Opht) 0 ml OU HS [facility] Last Admin: 04/22/16 21:41 Dose: 1 ml Metoprolol Tartrate (Lopressor) 50 mg PO BID [facility] Last Admin: 04/23/16 10:13 Dose: 50 mg Montelukast Sodium (Singulair) 10 mg PO HS [facility] Last Admin: 04/22/16 21:42 Dose: 10 mg Fluticasone/Salmeterol (Advair Diskus 500/50) 1 puff INH RQ12 [facility] Last Admin: 04/23/16 07:41 Dose: 1 puff - Labs Labs: 04/21/16 07:08 PT 13.6 SECONDS (9.7-12.2) H 04/20/16 15:35 INR 1.2 04/20/16 15:35 APTT 30 SECONDS (21-34) 04/20/16 15:35 - Constitutional Appears: Well - Head Exam Head Exam: ATRAUMATIC, NORMAL INSPECTION, NORMOCEPHALIC - Eye Exam Eye Exam: EOMI, Normal appearance, PERRL Pupil Exam: NORMAL ACCOMODATION, PERRL - ENT Exam ENT Exam: Mucous Membranes Moist, Normal Exam - Neck Exam Neck Exam: Full ROM, Normal Inspection. absent: Lymphadenopathy - Respiratory Exam Respiratory Exam: Wheezes, NORMAL BREATHING PATTERN - Cardiovascular Exam Cardiovascular Exam: REGULAR RHYTHM, +S1, +S2. absent: Murmur - GI/Abdominal Exam GI & Abdominal Exam: Soft, Normal Bowel Sounds. absent: Tenderness - Extremities Exam Extremities Exam: Full ROM, Normal Capillary Refill, Normal Inspection. absent : Joint Swelling, Pedal Edema - Back Exam Back Exam: NORMAL INSPECTION - Neurological Exam Neurological Exam: Alert, Awake, CN II-XII Intact, Oriented x3 - Psychiatric Exam Psychiatric exam: Normal Affect, Normal Mood - Skin Skin Exam: Dry, Intact, Normal Color, Warm Assessment and Plan (1) Chest pain Status: Acute (2) Dyspnea on exertion Status: Acute (3) COPD (chronic obstructive pulmonary disease) Status: Acute (4) Respiratory infection Status: Acute - Assessment and Plan (Free Text) Plan: CONTINUE NEBS AND ABX SOB NOT CARDIAC IN ORIGIN MONITOR ON TELE MONITOR LYTES CONT MEDS WILL FOLLOW 30 MIN TOTAL CARE TIME
[2016-04-23] MEDS: Moxifloxacin IV 400mg/250ml NS 250 ML IVPB SCH (21:17)
[2016-04-23] MEDS: Latanoprost 2.5 ml Opht Soln OU SCH (21:17)
[2016-04-24] MEDS: Fluticasone-Salmeterol 500-50mcg Diskus INH SCH ×2 (08:21→19:18)
[2016-04-24] MEDS: Albuterol-Ipratrop 3 mg / 0.5 (3 ml) UD INH SCH ×5 (08:21→19:17)
--- NOTE | 2016-04-24 15:37 | CP.PCM.PN ---
Subjective - Date & Time of Evaluation Date of Evaluation: 04/24/16 Time of Evaluation: 15:34 - Subjective Subjective: S: C/o cough. SOB on exertion. No fever. Objective - Vital Signs/Intake and Output Vital Signs (last 24 hours): Temp Pulse Resp BP Pulse Ox 97.4 F L 59 L 19 118/75 96 04/24/16 15:18 04/24/16 15:18 04/24/16 15:18 04/24/16 15:18 04/24/16 15:18 Intake and Output: 04/24/16 04/24/16 06:59 18:59 Intake Total 480 Balance 480 - Medications Medications: Current Medications Acetaminophen (Tylenol 325mg Tab) 325 mg PO TID [facility] Last Admin: 04/24/16 13:48 Dose: Not Given Albuterol/Ipratropium (Duoneb 3 Mg/0.5 Mg (3 Ml) Ud) 3 ml INH RQID [facility] Last Admin: 04/24/16 13:27 Dose: Not Given Docusate Sodium (Colace) 100 mg PO BID [facility] Last Admin: 04/24/16 09:43 Dose: 100 mg Famotidine (Pepcid) 20 mg PO BID [facility] Last Admin: 04/24/16 09:44 Dose: 20 mg Moxifloxacin HCl (Avelox Iv 400mg/250ml Ns) 250 mls @ 167 mls/hr IVPB Q24H [facility] Last Admin: 04/23/16 21:17 Dose: 167 mls/hr Latanoprost (Xalatan Opht) 0 ml OU HS [facility] Last Admin: 04/23/16 21:17 Dose: 2.5 ml Metoprolol Tartrate (Lopressor) 50 mg PO BID [facility] Last Admin: 04/24/16 09:44 Dose: 50 mg Montelukast Sodium (Singulair) 10 mg PO HS [facility] Last Admin: 04/23/16 21:17 Dose: 10 mg Fluticasone/Salmeterol (Advair Diskus 500/50) 1 puff INH RQ12 [facility] Last Admin: 04/24/16 08:21 Dose: Not Given - Labs Labs: 04/21/16 07:08 PT 13.6 SECONDS (9.7-12.2) H 04/20/16 15:35 INR 1.2 04/20/16 15:35 APTT 30 SECONDS (21-34) 04/20/16 15:35 - Constitutional Appears: No Acute Distress - Head Exam Head Exam: NORMOCEPHALIC - Eye Exam Eye Exam: Normal appearance - ENT Exam ENT Exam: Normal Exam - Neck Exam Neck Exam: Normal Inspection - Respiratory Exam Respiratory Exam: Decreased Breath Sounds - GI/Abdominal Exam GI & Abdominal Exam: Soft - Rectal Exam Rectal Exam: Deferred - Extremities Exam Extremities Exam: Normal Inspection Assessment and Plan (1) COPD (chronic obstructive pulmonary disease) Status: Acute (2) Gall stones Status: Chronic (3) Dyspnea on exertion Status: Acute - Assessment and Plan (Free Text) Plan: P: Continue medications. Chart reviewed. CT chest ? Cardiomegaly. U/s abdomen gallstone. Check ECHO
[2016-04-24] MEDS: Latanoprost 2.5 ml Opht Soln OU SCH (21:05)
[2016-04-24] MEDS: Moxifloxacin IV 400mg/250ml NS 250 ML IVPB SCH (21:05)
--- NOTE | 2016-04-24 21:51 | CP.PCM.PN ---
Subjective - Date & Time of Evaluation Date of Evaluation: 04/24/16 Time of Evaluation: 21:48 - Subjective Subjective: SEEN EARLIER TODAY. PT APPEARS MUCH IMPROVED. MILD EXP WHEEZING. LESS RHONCHI. Objective - Vital Signs/Intake and Output Vital Signs (last 24 hours): Temp Pulse Resp BP Pulse Ox 97.4 F L 80 19 118/75 96 04/24/16 15:18 04/24/16 15:30 04/24/16 15:18 04/24/16 15:18 04/24/16 15:18 Intake and Output: 04/24/16 04/25/16 18:59 06:59 Intake Total 480 Balance 480 - Medications Medications: Current Medications Acetaminophen (Tylenol 325mg Tab) 325 mg PO TID [facility] Last Admin: 04/24/16 18:27 Dose: 325 mg Albuterol/Ipratropium (Duoneb 3 Mg/0.5 Mg (3 Ml) Ud) 3 ml INH RQID [facility] Last Admin: 04/24/16 19:17 Dose: 3 ml Docusate Sodium (Colace) 100 mg PO BID [facility] Last Admin: 04/24/16 18:27 Dose: 100 mg Famotidine (Pepcid) 20 mg PO BID [facility] Last Admin: 04/24/16 18:27 Dose: 20 mg Moxifloxacin HCl (Avelox Iv 400mg/250ml Ns) 250 mls @ 167 mls/hr IVPB Q24H [facility] Last Admin: 04/24/16 21:05 Dose: 167 mls/hr Latanoprost (Xalatan Opht) 0 ml OU HS [facility] Last Admin: 04/24/16 21:05 Dose: 2.5 ml Metoprolol Tartrate (Lopressor) 50 mg PO BID [facility] Last Admin: 04/24/16 18:27 Dose: 50 mg Montelukast Sodium (Singulair) 10 mg PO HS [facility] Last Admin: 04/24/16 21:05 Dose: 10 mg Fluticasone/Salmeterol (Advair Diskus 500/50) 1 puff INH RQ12 [facility] Last Admin: 04/24/16 19:18 Dose: 1 puff - Labs Labs: 04/21/16 07:08 PT 13.6 SECONDS (9.7-12.2) H 04/20/16 15:35 INR 1.2 04/20/16 15:35 APTT 30 SECONDS (21-34) 04/20/16 15:35 - Constitutional Appears: Well - Head Exam Head Exam: ATRAUMATIC, NORMAL INSPECTION, NORMOCEPHALIC - Eye Exam Eye Exam: EOMI, Normal appearance, PERRL Pupil Exam: NORMAL ACCOMODATION, PERRL - ENT Exam ENT Exam: Mucous Membranes Moist, Normal Exam - Neck Exam Neck Exam: Full ROM, Normal Inspection. absent: Lymphadenopathy - Respiratory Exam Respiratory Exam: Wheezes, NORMAL BREATHING PATTERN - Cardiovascular Exam Cardiovascular Exam: REGULAR RHYTHM, +S1, +S2. absent: Murmur - GI/Abdominal Exam GI & Abdominal Exam: Soft, Normal Bowel Sounds. absent: Tenderness - Extremities Exam Extremities Exam: Full ROM, Normal Capillary Refill, Normal Inspection. absent : Joint Swelling, Pedal Edema - Back Exam Back Exam: NORMAL INSPECTION - Neurological Exam Neurological Exam: Alert, Awake, CN II-XII Intact, Oriented x3 - Psychiatric Exam Psychiatric exam: Normal Affect, Normal Mood - Skin Skin Exam: Dry, Intact, Normal Color, Warm Assessment and Plan (1) Chest pain Status: Acute (2) Dyspnea on exertion Status: Acute (3) COPD (chronic obstructive pulmonary disease) Status: Acute (4) Respiratory infection Status: Acute - Assessment and Plan (Free Text) Plan: PT IMPROVING APPARENTLY HAS HAD SX FOR MANY MONTHS WHICH WAX AND WANE. FEELS BETTER. AMBULATING W LESS LAND.
[2016-04-25] MEDS: Albuterol-Ipratrop 3 mg / 0.5 (3 ml) UD INH SCH ×4 (07:44→19:19)
[2016-04-25] MEDS: Fluticasone-Salmeterol 500-50mcg Diskus INH SCH ×2 (07:44→19:19)
--- NOTE | 2016-04-25 08:32 | CP.PCM.PN ---
Subjective - Date & Time of Evaluation Date of Evaluation: 04/25/16 Time of Evaluation: 08:10 - Subjective Subjective: Pt still coughing & SOB w/ exertion. No CP, no n/v, no diarhea Walk & unsteady ; State she had a bad night Objective - Vital Signs/Intake and Output Vital Signs (last 24 hours): Temp Pulse Resp BP Pulse Ox 99.2 F 70 20 146/82 98 04/24/16 23:07 04/25/16 00:00 04/24/16 23:07 04/24/16 23:07 04/24/16 23:07 - Medications Medications: Current Medications Acetaminophen (Tylenol 325mg Tab) 325 mg PO TID [facility] Last Admin: 04/24/16 18:27 Dose: 325 mg Albuterol/Ipratropium (Duoneb 3 Mg/0.5 Mg (3 Ml) Ud) 3 ml INH RQID [facility] Last Admin: 04/25/16 07:44 Dose: 3 ml Amlodipine Besylate (Norvasc) 5 mg PO DAILY [facility] Docusate Sodium (Colace) 100 mg PO BID [facility] Last Admin: 04/24/16 18:27 Dose: 100 mg Famotidine (Pepcid) 20 mg PO BID [facility] Last Admin: 04/24/16 18:27 Dose: 20 mg Moxifloxacin HCl (Avelox Iv 400mg/250ml Ns) 250 mls @ 167 mls/hr IVPB Q24H [facility] Last Admin: 04/24/16 21:05 Dose: 167 mls/hr Latanoprost (Xalatan Opht) 0 ml OU HS [facility] Last Admin: 04/24/16 21:05 Dose: 2.5 ml Montelukast Sodium (Singulair) 10 mg PO HS [facility] Last Admin: 04/24/16 21:05 Dose: 10 mg Fluticasone/Salmeterol (Advair Diskus 500/50) 1 puff INH RQ12 [facility] Last Admin: 04/25/16 07:44 Dose: 1 puff - Labs Labs: 04/21/16 07:08 PT 13.6 SECONDS (9.7-12.2) H 04/20/16 15:35 INR 1.2 04/20/16 15:35 APTT 30 SECONDS (21-34) 04/20/16 15:35 - Constitutional Appears: No Acute Distress - Eye Exam Eye Exam: Normal appearance - ENT Exam ENT Exam: Mucous Membranes Moist - Neck Exam Neck Exam: Full ROM. absent: Lymphadenopathy - Respiratory Exam Respiratory Exam: Decreased Breath Sounds, Wheezes. absent: Rales, Rhonchi - GI/Abdominal Exam GI & Abdominal Exam: Soft. absent: Tenderness, Mass - Extremities Exam Extremities Exam: Full ROM, Normal Capillary Refill, Pedal Edema. absent: Calf Tenderness, Joint Swelling Assessment and Plan - Assessment and Plan (Free Text) Assessment: Asthma, exac Atyp Chest pain Stop Metoprolol and change to Norvasc 2-D is practically normal Subacute eval
[2016-04-25] MEDS: Latanoprost 2.5 ml Opht Soln OU SCH (21:55)
[2016-04-25] MEDS: Moxifloxacin IV 400mg/250ml NS 250 ML IVPB SCH (21:55)
[2016-04-26 00:43] VITALS: O2SAT 97
[2016-04-26 07:11] LABS: BASO % 0.6 % (0.0-2.0); HEMATOCRIT 29.2 % (34.0-47.0); LYMPH # 1.2 K/uL (1.0-4.3); LYMPH % 33.2 % (20.0-40.0); MEAN CORPUSCULAR HEMOGLOBIN 27.9 pg (27.0-31.0); MEAN CORPUSCULAR HGB CONC 33.2 g/dL (33.0-37.0); MEAN PLATELET VOLUME 8.3 fL (7.2-11.7); MONO # 0.3 K/uL (0.0-0.8); MONO % 9.2 % (0.0-10.0); RED CELL DISTRIBUTION WIDTH 14.5 % (11.5-14.5); WHITE BLOOD COUNT 3.7 K/uL (4.8-10.8)
[2016-04-26 07:29] LABS: CHLORIDE 107 mmol/L (98-107); POTASSIUM 3.7 mmol/L (3.6-5.2); SODIUM 141 mmol/L (132-148)
[2016-04-26 07:31] LABS: BILIRUBIN,TOTAL 0.5 mg/dL (0.2-1.3); CARBON DIOXIDE 23 mmol/L (22-30); GFR AFRICAN-AMERICAN > 60
[2016-04-26 07:32] LABS: ALB/GLOB RATIO 0.5 (1.0-2.1); ALKALINE PHOSPHATASE 77 U/L (38-126); ALT/SGPT 40 U/L (9-52); AST/SGOT 67 U/L (14-36); BLOOD UREA NITROGEN 10 mg/dL (7-17); CALCIUM 8.1 mg/dl (8.6-10.4); GLUCOSE,RANDOM 85 mg/dL (65-105); TOTAL PROTEIN 10.2 g/dL (6.3-8.3)
[2016-04-26] MEDS: Fluticasone-Salmeterol 500-50mcg Diskus INH SCH (07:40)
[2016-04-26 08:05] VITALS: BP 120/75; PULSE 72; RESP 18; TEMP 98.3
[2016-04-26] MEDS ORDERED: Influenza Virus Vaccine 45 mcg/0.5 ml Syr IM ONE (12:27)
[2016-04-26] MEDS ORDERED: Pneumococcal 23-Valent Vaccine SC ONE (12:27)
--- NOTE | 2016-05-17 08:33 | CP.PCM.DIS ---
Provider - Provider Date of Admission: 04/20/16 17:37 71 y/o female with HTN and abn LFT. Pateitn treated d for cough x greater than 3 mths. Patient had chest pain, body ache and shortness of breath with exertion. she went to ER and noted to have anemia, abn LFT & abn CXR. Patient was admittied. Attending physician: Naun Ramirez MD Time Spent in preparation of Discharge (in minutes): 11 Hospital Course - Lab Results Lab Results: Micro Results 04/20/16 17:45 Blood Blood Culture - Final NO GROWTH AFTER 5 DAYS 04/20/16 17:45 Blood Gram Stain - Final TEST NOT PERFORMED Most Recent Lab Values WBC 3.7 K/uL (4.8-10.8) L 04/26/16 06:59 RBC 3.47 Mil/uL (3.80-5.20) L 04/26/16 06:59 Hgb 9.7 g/dL (11.0-16.0) L 04/26/16 06:59 Hct 29.2 % (34.0-47.0) L 04/26/16 06:59 MCV 84.0 fL (81.0-99.0) 04/26/16 06:59 MCH 27.9 pg (27.0-31.0) 04/26/16 06:59 MCHC 33.2 g/dL (33.0-37.0) 04/26/16 06:59 RDW 14.5 % (11.5-14.5) 04/26/16 06:59 Plt Count 122 K/uL (130-400) L 04/26/16 06:59 MPV 8.3 fL (7.2-11.7) 04/26/16 06:59 Neut % (Auto) 56.0 % (50.0-75.0) 04/26/16 06:59 Lymph % (Auto) 33.2 % (20.0-40.0) 04/26/16 06:59 Weld % (Auto) 9.2 % (0.0-10.0) 04/26/16 06:59 Eos % (Auto) 1.0 % (0.0-4.0) 04/26/16 06:59 Baso % (Auto) 0.6 % (0.0-2.0) 04/26/16 06:59 Neut # 2.1 K/uL (1.8-7.0) 04/26/16 06:59 Lymph # 1.2 K/uL (1.0-4.3) 04/26/16 06:59 Weld # 0.3 K/uL (0.0-0.8) 04/26/16 06:59 Eos # 0.0 K/uL (0.0-0.7) 04/26/16 06:59 Baso # 0.0 K/uL (0.0-0.2) 04/26/16 06:59 Differential Comment 04/26/16 06:59 PT 13.6 SECONDS (9.7-12.2) H 04/20/16 15:35 INR 1.2 04/20/16 15:35 APTT 30 SECONDS (21-34) 04/20/16 15:35 Sodium 141 mmol/L (132-148) 04/26/16 06:59 Potassium 3.7 mmol/L (3.6-5.2) 04/26/16 06:59 Chloride 107 mmol/L (98-107) 04/26/16 06:59 Carbon Dioxide 23 mmol/L (22-30) 04/26/16 06:59 Anion Gap 15 (10-20) 04/26/16 06:59 BUN 10 mg/dL (7-17) 04/26/16 06:59 Creatinine 1.0 MG/DL (0.7-1.2) 04/26/16 06:59 Est GFR ( Amer) > 60 04/26/16 06:59 Est GFR (Non-Af Amer) 55 04/26/16 06:59 Random Glucose 85 mg/dL (65-105) 04/26/16 06:59 Calcium 8.1 mg/dl (8.6-10.4) L 04/26/16 06:59 Total Bilirubin 0.5 mg/dL (0.2-1.3) 04/26/16 06:59 AST 67 U/L (14-36) H 04/26/16 06:59 ALT 40 U/L (9-52) 04/26/16 06:59 Alkaline Phosphatase 77 U/L (38-126) 04/26/16 06:59 Lactate Dehydrogenase 418 U/L (313-618) 04/21/16 11:11 Troponin I < 0.0120 ng/mL (0.00-0.120) 04/21/16 07:08 NT-Pro-B Natriuret Pep 57.7 pg/mL (0-900) 04/20/16 16:23 Total Protein 10.2 g/dL (6.3-8.3) H 04/26/16 06:59 Albumin 3.6 g/dL (3.5-5.0) 04/26/16 06:59 Globulin 6.6 gm/dL (2.2-3.9) H 04/26/16 06:59 Albumin/Globulin Ratio 0.5 (1.0-2.1) L 04/26/16 06:59 Vitamin B12 > 1000 pg/mL (239-931) H 04/22/16 20:08 Homocysteine 10.0 umol/L (4.7-12.6) 04/22/16 20:08 TSH 3rd Generation 1.75 mIU/L (0.46-4.68) 04/21/16 07:08 Urine Color Yellow (YELLOW) 04/21/16 03:26 Urine Clarity Clear (Clear) 04/21/16 03:26 Urine pH 6.0 (5.0-8.0) 04/21/16 03:26 Ur Specific [place] 1.026 (1.003-1.030) 04/21/16 03:26 Urine Protein Negative mg/dL (NEGATIVE) 04/21/16 03:26 Urine Glucose (UA) Normal mg/dL (Normal) 04/21/16 03:26 Urine Ketones Negative mg/dL (NEGATIVE) 04/21/16 03:26 Urine Blood Negative (NEGATIVE) 04/21/16 03:26 Urine Nitrate Negative (NEGATIVE) 04/21/16 03:26 Urine Bilirubin Negative (NEGATIVE) 04/21/16 03:26 Urine Urobilinogen Normal mg/dL (0.2-1.0) 04/21/16 03:26 Ur Leukocyte Esterase Neg Aubrey/uL (Negative) 04/21/16 03:26 Urine WBC (Auto) 1 /hpf (0-5) 04/21/16 03:26 Urine RBC (Auto) 1 /hpf (0-3) 04/21/16 03:26 Ur Squamous Epith Cells 3 /hpf (0-5) 04/21/16 03:26 Urine Bacteria Rare (<OCC) 04/21/16 03:26 IgG 7014 mg/dL (694-1618) H 04/21/16 11:11 IgA 218 mg/dL (81-463) 04/21/16 11:11 IgM 34 mg/dL (48-271) L 04/21/16 11:11 Serum Immunofixation See note (()) 04/21/16 11:11 Urine Immunofixation See note (()) 04/21/16 11:20 Hepatitis A IgM Ab Negative (NEGATIVE) 04/21/16 11:11 Hep Bs Antigen Negative (NEGATIVE) 04/21/16 11:11 Hep B Core IgM Ab Negative (NEGATIVE) 04/21/16 11:11 Hepatitis C Antibody Negative (NEGATIVE) 04/21/16 11:11 - Hospital Course Hospital Course: Pt admitted and started on Antibx and Neb tx. Patient has childhood Asthma as such stated also on Adviar. Pt was noted to be anemic w/ abn LFT. 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 Pt seen in OPD and refer to GE. Patient breathing improve and discharge. Discharge Exam - Head Exam Head Exam: ATRAUMATIC, NORMAL INSPECTION, NORMOCEPHALIC Discharge Plan - Follow Up Plan Condition: STABLE Disposition: HOME/ ROUTINE Instructions: Pneumococcal Vaccine for Adults (DC), Gout (DC), Influenza Vaccine (DC), COPD (Chronic Obstructive Pulmonary Disease) (DC), Bacterial Pneumonia (DC), Anemia (DC) Additional Instructions: Activity as tolerated. Follow up with Dr. Ramirez on 04/28 or 04/29, and follow up appointment with Dr. Nair.
== END 2016-04-26 15:11 | disposition home or self-care (01) | DRG 190 ==
LOC: C.ER 14:20 → C.9E 17:37 → C.6T 18:20
PROVIDERS: ADMIT Internal Medicine; ATTEND Internal Medicine
DX: J44.0 Chronic obstructive pulmonary disease with (acute) lower respiratory infection (principal); J18.9 Pneumonia, unspecified organism; D61.818 Other pancytopenia; R06.00 Dyspnea, unspecified; K74.60 Unspecified cirrhosis of liver; J45.901 Unspecified asthma with (acute) exacerbation; J98.11 Atelectasis; R07.89 Other chest pain; I10 Essential (primary) hypertension; R53.83 Other fatigue; R26.9 Unspecified abnormalities of gait and mobility; D72.819 Decreased white blood cell count, unspecified; H26.9 Unspecified cataract; Z86.73 Personal history of transient ischemic attack (TIA), and cerebral infarction without residual deficits

== ENCOUNTER 2017-01-04 08:35 | Day surgery (SDC) | payer MEDICARE ==
[2017-01-02 12:02] VITALS: BMI 24.4
[2017-01-02 12:18] VITALS: TEMP 98; O2SAT 96
[2017-01-04] MEDS ORDERED: Midazolam 2 MG/2 ML VIAL ONE (10:37)
[2017-01-04] MEDS ORDERED: Absorbable Gelatin Sponge Size 12-7 ONE (10:42)
--- NOTE | 2017-01-04 11:00 | CP.SDSHP ---
Same Day Surgery H & P - History Proposed Procedure: US guided biopsy of liver Pre-Op Diagnosis: Abnormal LFTs - Allergies Allergies: Allergies No Known Allergies Allergy (Verified 04/20/16 14:30) - Physical Exam Mental Status: Alert & Oriented x3 Neuro: WNL Heart: WNL Lungs: WNL - Impression Impression: Pt with abnormal LFTs referred for liver biopsy. Plan US guided liver biopsy. Informed consent obtained. Pt. Evaluated Today:Candidate for Anesthesia & Procedure: Yes (ASA 3 Malampati 3) - Date & Time Date: 01/04/17 Time: 10:35 Short Stay Discharge - Short Stay Discharge Admitting Diagnosis/Reason for Visit: LIVER MASS
--- NOTE | 2017-01-04 11:01 | PCM.SURG1 ---
Surgeon's Initial Post Op Note - Surgeon's Notes Surgeon: Florian Small MD Supervisor Tank House: NONE Type of Anesthesia: IV Sedation Pre-Operative Diagnosis: Abnormal LFTs Operative Findings: US showed an unremarkable left hepatic lobe. Post-Operative Diagnosis: Abnormal LFTs Operation Performed: US guided left liver biopsy Specimen/Specimens Removed: 18 gauge core x 3 Estimated Blood Loss: EBL {In ML}: 1 Blood Products Given: N/A Drains Used: No Drains Post-Op Condition: Good Date of Surgery/Procedure: 01/04/17 Time of Surgery/Procedure: 10:55
[2017-01-04] MEDS ORDERED: Oxycodone/Acetaminophen 5/325 mg Tab PO PRN (11:56)
[2017-01-04] MEDS ORDERED: Oxycodone/Acetaminophen 5/325 mg Tab ONE (12:06)
[2017-01-04 12:37] VITALS: BP 128/85; RESP 20
[2017-01-04 12:39] VITALS: PULSE 82
--- NOTE | 2017-01-10 13:22 | US ---
PROCEDURE: Date of procedure: 01/04/2017 Procedure: 1. Ultrasound-guided core liver biopsy, CPT 83684 2. Ultrasound guidance for biopsy, 35804 Medications: The patient is sedated by the anesthesiologist. HISTORY: Abnormal LFTs TECHNIQUE: Following informed consent and procedure time-out, the patient was placed supine on bed and limited ultrasound showed a normal appearing left hepatic lobe. After patient abdomen was prepped and draped in the usual sterile fashion and the skin was anesthetized with 2% lidocaine, an 18 gauge core needle was advanced percutaneously under direct ultrasound guidance into the left hepatic lobe. Upon confirmation of needle position, three 18 gauge core specimens were obtained and sent for routine pathology. The biopsy to tract was then embolized with Gelfoam. A post biopsy ultrasound showed no hematoma. A dressing was applied. IMPRESSION: Ultrasound-guided core biopsy left hepatic lobe. There were no immediate complications.
== END 2017-01-04 13:19 | disposition home or self-care (01) ==
LOC: C.SPRAD 08:35
PROVIDERS: ATTEND Radiology Vascular & Interventional Radiology
DX: R94.5 Abnormal results of liver function studies (principal)
CPT/HCPCS: 47000; 88307; 88313; J2250; J3010